=== PATIENT | male | born 1965 | race Asian ===

== ENCOUNTER 2021-01-15 20:45 | Emergency (ER) | payer MEDICAID ==
[~2021-01-15] VITALS: Ht 170.2 cm; Wt 72.6 kg
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
--- NOTE | 2021-01-15 21:49 | NUR ---
Patient discharged to home in stable condition. Written and verbal after care instructions given. Patient verbalizes understanding of instruction.
[2021-01-15 21:50] VITALS: BP 120/77
== END 2021-01-15 21:50 | disposition home or self-care (01) ==
LOC: ER 21:11
DX: S52.572A Other intraarticular fracture of lower end of left radius, initial encounter for closed fracture (principal); Z98.890 Other specified postprocedural states; W11.XXXA Fall on and from ladder, initial encounter; Y93.89 Activity, other specified; Y92.89 Other specified places as the place of occurrence of the external cause; Y99.8 Other external cause status
CPT/HCPCS: 73110; 73130-TC